=== PATIENT | female | born 1935 | race Caucasian/White ===

== ENCOUNTER 2017-05-23 12:37 | Outpatient (CLI) | payer MEDICARE, BC ==
--- NOTE | 2017-05-23 15:13 | CT ---
CT BRAIN WITHOUT CONTRAST: History: Left hand weakness, patient is on a blood thinner and has a history of lung cancer. FINDINGS: There is small focus of increased attenuation in the posterior aspect of the right thalamus, suspicio us for a small acute hemorrhage. There is an adenoid cyst in the left posterior frontal region in the inter table of the calvarium. Ventricular size is normal and the basilar cisterns patent. No other e vidence of acute infarct or midline shift is seen. The bony calvarium is intact. The visualized sinus es and mastoid air cells are well aerated. IMPRESSION: 1. Small focus of acute hemorrhage in the right thalamus. Further evaluation with MRI would be helpfu l. 2. Report was called over the telephone to Dr. Tana Mosher's nurse, Kris Tinoco LVN at 1:19 p.m. POS: OFF
== END 2017-05-23 12:38 | disposition home or self-care (01) ==
LOC: SCSCT 12:37
PROVIDERS: ATTEND Internal Medicine Geriatric Medicine
DX: R29.898 Other symptoms and signs involving the musculoskeletal system (principal)
CPT/HCPCS: 70450

== ENCOUNTER 2017-05-24 16:18 | Outpatient (CLI) | payer MEDICARE, BC | END 2017-05-24 16:19 | disposition home or self-care (01) | LOC: BICMRI 16:18 | PROVIDERS: ATTEND Internal Medicine Geriatric Medicine | DX: I61.0 Nontraumatic intracerebral hemorrhage in hemisphere, subcortical (principal) | CPT/HCPCS: 70551 ==

== ENCOUNTER 2017-06-19 12:39 | Outpatient (CLI) | payer MEDICARE, BC ==
--- NOTE | 2017-06-19 13:13 | RAD ---
TWO VIEWS CHEST: Date: 06-19-17 Provided Clinical History: Dyspnea. FINDINGS: No comparisons. Cardiac silhouette appears enlarged. There is poor definition to the left heart dylon n with somewhat triangular density present on the lateral view suggesting lingular atelectasis or inf iltrate. There is patchy opacity present within the right midlung zone. No pleural fluid or pneumotho rax apparent. Emphysematous changes are seen. Vascular calcification is noted. IMPRESSION: 1. Lingular infiltrate or atelectasis. 2. Right midlung zone airspace disease. Correlation with chest CT should be considered. Follow up is recommended. POS: OFF
== END 2017-06-19 12:40 | disposition home or self-care (01) ==
LOC: RAD 12:39
PROVIDERS: ATTEND Internal Medicine Critical Care Medicine
DX: R06.00 Dyspnea, unspecified (principal); J98.4 Other disorders of lung
CPT/HCPCS: 71046

== ENCOUNTER 2017-10-30 12:17 | Day surgery (SDC) | payer MEDICARE, BC ==
[2017-10-29 13:44] VITALS: BMI 20.1
[2017-10-30] MEDS ORDERED: PROPOFOL 200 MG/20 ML VIAL ONE (12:43)
[2017-10-30] MEDS ORDERED: Lidocaine 1% PF 5 ML VIAL ONE (12:43)
--- NOTE | 2017-10-30 13:57 | OP ---
DATE OF PROCEDURE: 10/30/2017 GI ENDOSCOPY NOTE SURGEON: Drake Lindo M.D. STAVE LOG RIPSAW OPERATOR SURGEON: None. PROCEDURE: Colonoscopy, screening. INDICATION: Average risk colorectal cancer screening exam. The patient's last colonoscopy was in 02 11. MEDICATIONS: See anesthesia record. FINDINGS: After discussion of the risks, benefits and alternatives of the procedure, informed consen t was obtained and witnessed. Pre-endoscopic cardiopulmonary examination was satisfactory. Timeout was performed before sedation was achieved. Sedation was achieved with anesthesia assistance in the endoscopy unit. Digital rectal exam was performed which was unremarkable. The Pentax adult colonosc ope was inserted into the anus and passed forward to the cecum in the usual fashion. The cecal base was identified by the appendiceal orifice as well as the ileocecal valve. The terminal ileum was int ubated and the ileal mucosa appeared normal. The colonoscope was then slowly withdrawn in a gradual and circumferential manner with careful examination of the entire colonic mucosa. The quality of the prep was adequate. The colonic mucosa appeared normal throughout. There was no evidence of any renuka yps or mass lesions or areas of inflammation. In the sigmoid colon, there are a few diverticula. Re troflexion in the rectum demonstrated internal hemorrhoids. The colonoscope was then completely with drawn and the patient allowed to recover. The patient tolerated the procedure well. There were no i mmediate post-procedure complications. IMPRESSION: 1. Sigmoid diverticulosis. 2. Internal hemorrhoids. 3. Otherwise, normal colonoscopy to the terminal ileum. RECOMMENDATIONS: 1. No repeat colonoscopy is recommended, due to the patient's age and the absence of polyps on this examination. 2. The patient can resume her Eliquis.
== END 2017-10-30 14:00 | disposition home or self-care (01) ==
LOC: SDC 12:17
PROVIDERS: ATTEND Internal Medicine
PROC: 0DJD8ZZ Inspection of Lower Intestinal Tract, Via Natural or Artificial Opening Endoscopic (ICD-10-PCS; principal; 2017-10-30)
DX: Z12.11 Encounter for screening for malignant neoplasm of colon (principal); K57.30 Diverticulosis of large intestine without perforation or abscess without bleeding; K64.8 Other hemorrhoids; I48.91 Unspecified atrial fibrillation; Z87.891 Personal history of nicotine dependence; Z79.01 Long term (current) use of anticoagulants; Z79.899 Other long term (current) drug therapy
CPT/HCPCS: J2001; J2704

== ENCOUNTER 2017-12-18 12:46 | Outpatient (CLI) | payer MEDICARE, BC ==
--- NOTE | 2017-12-18 13:25 | RAD ---
CHEST TWO VIEWS: HISTORY: Dyspnea. COMPARISON: 06/19/2017 FINDINGS: Two views of the chest show an enlarged but stable cardiomediastinal silhouette. Increased interstit ial markings are present. There is no evidence of consolidation, mass, or pleural effusion. Degener ative changes are seen in the spine. IMPRESSION: 1. No evidence of acute cardiopulmonary disease. 2. Stable cardiomegaly. POS: [facility]
== END 2017-12-18 12:47 | disposition home or self-care (01) ==
LOC: RAD 12:46
PROVIDERS: ATTEND Internal Medicine Critical Care Medicine
DX: R06.00 Dyspnea, unspecified (principal); I51.7 Cardiomegaly
CPT/HCPCS: 71046

== ENCOUNTER 2018-02-08 13:38 | Outpatient (CLI) | payer MEDICARE, BC ==
--- NOTE | 2018-02-08 16:34 | BD ---
DEXA BONE DENSITY STUDY: Date: 02/08/18 HISTORY: 82-year-old postmenopausal female for screening for osteoporosis. COMPARISON: None. FINDINGS: Lumbar Spine: BMD (g/cm2) L1 0.751 T-Score: -2.2 L2 0.773 T-Score: -2.3 L3 0.708 T-Score: -3.4 L4 0.753 T-Score: -2.8 L1-L4 0.744 T-Score: -2.8 Femoral Neck: 0.813 T-Score: -0.3 Total Femur: 0.913 T-Score: -0.2 IMPRESSION: Osteoporosis. This patient has a 10 year WHO fracture risk of a major osteoporotic fracture of 7.9% a nd of a hip fracture of 1.4%. POS: [facility]
== END 2018-02-08 13:39 | disposition home or self-care (01) ==
LOC: BICMAMMO 13:38
PROVIDERS: ATTEND Internal Medicine Geriatric Medicine
DX: Z12.31 Encounter for screening mammogram for malignant neoplasm of breast (principal); Z13.820 Encounter for screening for osteoporosis; M81.0 Age-related osteoporosis without current pathological fracture
CPT/HCPCS: 77063; 77067; 77080

== ENCOUNTER 2018-02-21 04:50 | Inpatient (IN) | payer MEDICARE, BC ==
[2018-02-21 05:36] LABS: Band 7 % (5-11); Eosinophils 2 % (0-10); Hemoglobin 13.1 g/dL (12.0-16.0); Lymphocytes 27 % (21-51); MDiff Complete? YES; Mean Corpuscular HGB CONC 34.1 g/dL (32.0-36.0); Mean Corpuscular Hemoglobin 31.1 pg (27.0-31.0); Mean Corpuscular Volume 91.1 fL (78.0-98.0); Mean Platelet Volume 7.9 fL (7.4-10.4); Monocytes 7 % (0-10); Neutrophil 54 % (42-75); Platelet Count 256 thou/uL (130-400); RBC Distribution Width 12.9 % (11.5-14.5); Reactive Lymphocytes 3 % (0-10); Red Blood Cell (RBC) Count 4.21 mill/uL (4.20-5.40); White Blood Cell (WBC) Count 5.6 thou/uL (4.8-10.8)
[2018-02-21 05:41] LABS: ALT (SGPT) 10 U/L (8-55); AST (SGOT) 23 U/L (5-34); Albumin 4.5 g/dL (3.4-4.8); Alkaline Phosphatase 72 U/L (40-150); Anion Gap 14 mmol/L (10-20); BUN (Urea Nitrogen) 11 mg/dL (9.8-20.1); Bilirubin, Total 0.4 mg/dL (0.2-1.2); CK (CPK) 99 U/L (29-168); Calc. Creatinine Clearance 0 mL/min (70-130); Calcium 9.4 mg/dL (7.8-10.44); Carbon Dioxide 26 mmol/L (23-31); Chloride 99 mmol/L (98-107); Estimated GFR-MDRD 80; Globulin 3.2 g/dL (2.4-3.5); Glucose 96 mg/dL (83-110); Lipase 24 U/L (8-78); Protein, Total 7.7 g/dL (6.0-8.3); Sodium 135 mmol/L (136-145)
[2018-02-21 07:05] LABS: CKMB 2.6 ng/mL (0-6.6); Troponin I Less than 0.010 ng/mL (< 0.028)
[2018-02-21] MEDS ORDERED: Lidocaine Viscous Sol 2% 15 ml UD Cup ONE (07:05)
[2018-02-21] MEDS ORDERED: Mag-Al Plus 1200 MG/1200 MG/120 MG/30 ML UDCUP ONE (07:05)
[2018-02-21] MEDS ORDERED: Famotidine/PF 20 mg/2ml Vial ONE ×2 (07:34)
--- NOTE | 2018-02-21 07:35 | CT ---
CT ABDOMEN AND PELVIS WITH CONTRAST: INDICATION: Pain. COMPARISON: No prior imaging comparison. FINDINGS: There is a generalized heterogeneity of the hepatic parenchyma. Moderate pericardial fluid is partia lly visualized. There is enlargement of the imaged cardiac chambers. The spleen is prominent in vol ume. There is a small hiatal hernia. Exophytic right renal cyst is seen. There is an additional hy podensity of the superior pole right kidney, too small to further characterize. No overt hydronephro sis or adrenal mass. Scattered vascular disease is typical for patient's age. Minimal nonspecific p rominence of the pancreatic duct without a discrete pancreatic mass identified. There is constipatio n. The bowel is incompletely evaluated without enteric contrast. No free air is visualized. No por cordell vein gas. Atrophy of the paraspinous musculature. Incidental note of probable scarring at the v isualized lung bases. IMPRESSION: 1. Partially imaged moderate-sized pericardial effusion. 2. Constipation. 3. Slight prominence of pancreatic duct, nonspecific. 4. Right renal cyst formation. POS: [facility]
--- NOTE | 2018-02-21 08:06 | RAD ---
SINGLE VIEW OF THE CHEST: COMPARISON: 12/18/2017. HISTORY: Epigastric pain beginning at midnight. FINDINGS: A single view of the chest shows an enlarged but stable cardiomediastinal silhouette. Increased inte rstitial lung markings are present. There is no evidence of consolidation, mass, or pleural effusion . IMPRESSION: Stable cardiomegaly. POS: [facility]
[2018-02-21] MEDS ORDERED: Ondansetron PF 4 MG/2 ML Vial ONE (08:58)
[2018-02-21 10:06] VITALS: BMI 19.5
[2018-02-21] MEDS ORDERED: Ondansetron PF 4 MG/2 ML Vial IVP PRN (10:16)
[2018-02-21] MEDS ORDERED: Acetaminophen 650 MG Suppository PR PRN (10:16)
[2018-02-21] MEDS ORDERED: Morphine 4 MG/ML VIAL SLOW IVP PRN (10:33)
[2018-02-21] MEDS ORDERED: Polyethylene Glycol 3350 17 GM Packet PO SCH (10:45)
[2018-02-21] MEDS ORDERED: Fleet Enema 133 ML BOT PR SCH (10:45)
[2018-02-21] MEDS ORDERED: Apixaban 5 MG TAB PO SCH (11:30)
--- NOTE | 2018-02-21 11:44 | HP ---
PRIMARY CARE PROVIDER: Mari John M.D. CHIEF COMPLAINT: Referred to [facility] by [facility] for abdo leon pain. HISTORY OF PRESENT ILLNESS: The patient presents with a cramping like abdominal pain, continuous ove r approximately the past 24 hours but has severe episodes that occur intermittently. She has had no nausea or vomiting, no diarrhea. She states she had a bowel movement yesterday. In discussing thing s, she stated that she had a big change in her bowel movements after she moved here a year ago, but s he denies any constipation. She has had no blood per rectum. No fever, chills or sweats. Noted on a CT in the workup was extensive stool throughout the colon with a diagnosis of constipation by the r adiologist. She was also noted to have a moderate pleural effusion, pericardial effusion. PAST MEDICAL HISTORY: Atrial fibrillation, anticoagulation lung cancer post-surgery 6 years ago, a s mall intracranial hemorrhage a few months ago for which she says she was not hospitalized. Her Couma din was changed to Eliquis at that time. Hypothyroidism. CURRENT MEDICATIONS: Eliquis 5 mg p.o. b.i.d., levothyroxine 25 mcg a day, metoprolol 25 mg a day, v itamin C/E/Zinc/Copper 1 p.o. b.i.d. ALLERGIES: No known drug allergies. PAST SURGICAL HISTORY: She has had a hysterectomy and lung surgery for cancer. FAMILY HISTORY: Mother, father, siblings, no diseases noted. SOCIAL HISTORY: . Full code status. Daughter Neida is next of kin, surrogate decision rosa lennon. No alcohol, no tobacco in 50 years. She drinks wine with dinner. REVIEW OF SYSTEMS: GENERAL: No headaches, dizziness, or fainting. EYES: She has macular degeneration, has not had laser surgery, is taking vitamins at this time. Ears, Nose, and Throat: No ear pain or drainage. No nasal bleeding. No trouble swallowing. CARDIAC: No chest pain, orthopnea or paroxysmal nocturnal dyspnea. RESPIRATIONS: No cough, wheezing, or asthma. GASTROINTESTINAL: See PI. GENITOURINARY: No hematuria or dysuria. MUSCULOSKELETAL: No pain or swelling in her arms and legs. NEUROLOGIC: She had a small intracranial hemorrhage, poorly described by her with no residual. PSYCHIATRIC: No anxiety or depression. SKIN: No bruising, bleeding or rash. HEME/LYMPH: No tender or swollen lymph nodes in axilla, inguinal or cervical area. PHYSICAL EXAMINATION: GENERAL: The patient is alert, pleasant, cooperative. VITALS: Pulse 82 and irregular, respirations 20, blood pressure 140/60, temperature 98.6. HEENT: Reveal pupils equal, round. Extraocular movements are intact. Sclerae white. Tympanic memb ranes clear. Nose is clear. Oral mucous membranes are wet. Dental hygiene is good. NECK: No jugular venous distention, adenopathy, or thyromegaly. CHEST: Clear to auscultation and percussion. HEART: Irregular rate and rhythm controlled. First and second heart sounds were variable. No murmu rs identified. ABDOMEN: Soft, variably tender. Bowel sounds normal. No bruit. No rashes. EXTREMITIES: No cyanosis, clubbing, or edema. PULSES: Carotid, radial, femoral, and dorsalis pedis pulses intact and symmetric. SKIN: Warm and dry without bruises or rash. HEME/LYMPH: No tender or swollen lymph nodes in axilla, inguinal or cervical area. NEUROLOGICAL: Cranial nerves II-XII are intact. Deep tendon reflexes are symmetric. Moves all extr emities. LABORATORY AND X-RAY FINDINGS: CT of the abdomen and pelvis. I have reviewed it. The interpretatio n by the radiologist is , moderate sized pericardial effusion, constipation, slight prominence o f pancreatic duct, renal cyst. EKG, irregularly irregular rhythm consistent with atrial fibrillation , nonspecific T-wave changes. Comp metabolic profile normal except for a sodium of 135. The lipase is 24. Cardiac enzymes are normal. CBC is normal. ADMITTING DIAGNOSES: Abdominal pain, pericardial effusion, atrial fibrillation with controlled ventricular response, chron ic anticoagulation, history of lung cancer, hypothyroidism. PLAN: Based on her abdominal exam and her workup, we will give MiraLax and Fleet's enema and watch. An echocardiogram has been ordered. Dr. Mitchell has been consulted. She will be continued on her wa dications for atrial fibrillation including her anticoagulation at this time. This lady will require at least 2 overnights for evaluation and treatment of this abdominal pain and of this pericardial ef fusion, she will likely need a pericardiocentesis.
[2018-02-21 12:10] LABS: T4 6.2 ug/dL (4.87-11.72); Thyroid Stimulating Hormone 2.9312 uIU/mL (0.35-4.94)
[2018-02-21] MEDS: Ketorolac Tromethamine 30 MG/ML VIAL IVP PRN ×2 (12:47→19:18)
--- NOTE | 2018-02-21 13:01 | CON-2 ---
CARDIOLOGY CONSULTATION NOTE DATE OF CONSULTATION: 02/21/2018 CONSULTING PHYSICIAN: Quirino Mitchell MD REASON FOR CONSULTATION: Pericardial effusion. HISTORY OF PRESENT ILLNESS: Ms. Salas is a very pleasant 82-year-old female with past medical history significant for atrial fibrillation with 3 prior unsuccessful cardioversions, history of lung cancer, status post partial lobectomy, hypothyroidism that presents with sudden onset epigastric pain that woke her from sleep early this morning. Patient states that the pain is very severe and worse in the midepigastric region. She said she has never had pain like this previously. Patient denies any chest pain, palpitations, shortness of breath, nausea, or vomiting associated with this pain. The patient states that she has no cardiac history aside from the atrial fibrillation for which she is being anticoagulated with Eliquis 5 mg b.i.d. She is otherwise healthy and does not endorse any other significant past medical history. The patient states prior to the severe epigastric pain that awoke him from sleep, she had been feeling well. She denies any recent viral illnesses or episodes of chest pain. The patient was brought to [facility] Emergency Department where a CT of the abdomen and pelvis was performed. CT abdomen and pelvis showed a partially imaged moderate sized pericardial effusion for which the Cardiology team was consulted for further evaluation. At the time of consultation, the patient was having epigastric and diffuse abdominal pain. She denied any chest pain, shortness of breath, diaphoresis, nausea, or vomiting. PAST MEDICAL HISTORY: 1. Atrial fibrillation on chronic anticoagulation. 2. History of lung cancer, status post partial lobectomy. 3. Hypothyroidism. PAST SURGICAL HISTORY: 1. Appendectomy. 2. Partial lobectomy for lung cancer 6-7 years ago. 3. Reported history of 3-4 prior unsuccessful cardioversions. OUTPATIENT MEDICATIONS: 1. Levothyroxine 25 mcg daily. 2. Metoprolol succinate 25 mg daily. 3. Eliquis 5 mg b.i.d. 4. PreserVision 2 drops per day in each eye. ALLERGIES: No known drug allergies. FAMILY HISTORY: There is no family history significant for coronary artery disease. SOCIAL HISTORY: The patient does endorse a past history of smoking which she quit more than 40 years ago. The patient endorses drinking a glass of wine per night. The patient denies any illicit drug use. REVIEW OF SYSTEMS: A 12-point review of systems was performed and all were negative unless those stated in the history of present illness. PHYSICAL EXAMINATION: VITAL SIGNS: Temperature 98.6, pulse 80, respiratory rate 22, O2 saturation 97 % on room air, blood pressure 138/61. GENERAL: Awake, alert and oriented x3, in no distress. HEENT: Normocephalic, atraumatic. NECK: Supple. LUNGS: Clear to auscultation. CARDIOVASCULAR: Irregularly irregular rhythm. ABDOMEN: Soft, but tender to palpation throughout with some rebound tenderness , particularly in the left lower quadrant. EXTREMITIES: No edema. SKIN: Warm and dry. LABORATORY DATA: Reviewed. CBC reveals WBC of 5.6, hemoglobin 13.1, hematocrit 38.4, platelet count of 256. CMP reveals a sodium of 135, potassium 4.0, chloride 99, bicarbonate 26, BUN 11, creatinine 0.70, GFR 80, calcium 9.4, total bilirubin 0.4, AST 23, ALT 10, alkaline phosphatase 72, albumin 4.5, total protein 7.7. CK-MB was noted to be 2.6. Troponin less than 0.010. Lipase was 24. TSH was 2.9312 with a T4 of 6.2. EKG was reviewed and showed atrial fibrillation. Chest x-ray showed stable cardiomegaly. Abdomen and pelvis CT with contrast was performed and showed partially imaged moderate sized pericardial effusion. There is also notable constipation and some slight prominence of the pancreatic duct that appeared to be nonspecific. There is also a right renal cyst formation. ASSESSMENT AND PLAN: 1. Pericardial effusion. There is mention of a partially imaged moderate- sized pericardial effusion on CT abdomen and pelvis with contrast. We will further evaluate with echocardiogram. 2. Atrial fibrillation, appears rate controlled. Continue current anticoagulation and BB. 3. Hypothyroidism. Continue levothyroxine. TSH within normal limits. Thank you for the consultation. We will continue to follow. [facility]
--- NOTE | 2018-02-21 16:09 | PDOC.EVN ---
Event Note - Event Note Event Note: adequate dyana reliief with toradol, abd benign. advance diet, cont laxatives
[2018-02-21] MEDS: D5 1/2 NS w/20 mEq KCL 1,000 ML IV SCH (17:20)
[2018-02-21] MEDS: Apixaban 5 MG TAB PO SCH (20:20)
[2018-02-21] MEDS: Vit A,C & E/Lutein/Minerals Tablet PO SCH (20:20)
--- NOTE | 2018-02-21 20:38 | CON ---
DATE OF CONSULTATION: 02/21/2018 REASON FOR CONSULTATION: Pericardial effusion. Please see Dr. Chiquita Angel's note from this same date for consultation her note into my n ote and agree with her assessment and plan. HISTORY OF PRESENT ILLNESS: Briefly, Ms. Salas came in for epigastric pain. She had an abdominal C T that showed a large amount of stool in her colon diagnosed with constipation. Part of the CT showe d a partially imaged pericardial effusion, so Cardiology is being consulted for this. Ms. Salas den ies any chest pain, tightness, pressure. Denies any pericardial symptoms. Denies any pleuritic type symptoms. She is chronically on anticoagulation with Eliquis for history of atrial fibrillation and has had partial lobectomy secondary to history of lung cancer which is in remission. For past medical, past surgical, outpatient medications, allergies, family history, social history, r eview of systems, please see Dr. Angel's note for details. PHYSICAL EXAMINATION: VITAL SIGNS: Temperature 98.6, pulse 94, respiration rate 20, satting 93% on room air, blood pressur e 144/79. GENERAL: Awake, alert, oriented x3, in no distress. HEENT: Normocephalic, atraumatic. NECK: Supple. LUNGS: Clear. CARDIOVASCULAR: Regular rate, 60s. ABDOMEN: Soft with positive bowel sounds. No rebound or guarding. This is a change from when Dr. Ivone pulido saw her earlier. She has received a dose of Toradol since and is much more comfortable now. EXTREMITIES: Trace edema. SKIN: Warm and dry. LABORATORY WORK: Reviewed. Please see Dr. Angel's note for details. ASSESSMENT: 1. Pericardial effusion. 2. Atrial fibrillation, chronic, rate controlled, on full anticoagulation. 3. Hypothyroidism, adequate levels. PLAN: 1. Echocardiogram to be done to evaluate. 2. No clinical evidence of tamponade physiology on physical examination. 3. Continue rate control and full anticoagulation with Eliquis for stroke prophylaxis. 4. Abdominal pain to be worked up by primary team. Apparently constipation will be the issue. She is doing much better now.
[2018-02-22] MEDS: D5 1/2 NS w/20 mEq KCL 1,000 ML IV SCH ×3 (01:37→20:35)
[2018-02-22 05:20] LABS: #Eosinphils 0.1 thou/uL (0.0-0.7); #Lymphocytes 1.2 thou/uL (1.20-3.40); #Monocytes 0.4 thou/uL (0.11-0.59); #Neutrophils 5.1 thou/uL (1.40-6.50); %Basophils 0.5 % (0.0-1.0); %Eosinophils 1.2 % (0.0-10.0); %Lymphocytes 17.3 % (21.0-51.0); %Neutrophils 74.9 % (42.0-75.0); Hemoglobin 11.6 g/dL (12.0-16.0); Mean Corpuscular HGB CONC 31.8 g/dL (32.0-36.0); Mean Corpuscular Hemoglobin 31.3 pg (27.0-31.0); Mean Corpuscular Volume 98.3 fL (78.0-98.0); Mean Platelet Volume 7.7 fL (7.4-10.4); Platelet Count 269 thou/uL (130-400); RBC Distribution Width 13.5 % (11.5-14.5); White Blood Cell (WBC) Count 6.8 thou/uL (4.8-10.8)
[2018-02-22 05:37] LABS: Anion Gap 10 mmol/L (10-20); BUN (Urea Nitrogen) 15 mg/dL (9.8-20.1); Calc. Creatinine Clearance 57 mL/min (70-130); Calcium 8.3 mg/dL (7.8-10.44); Carbon Dioxide 27 mmol/L (23-31); Chloride 100 mmol/L (98-107); Estimated GFR-MDRD 84; Glucose 119 mg/dL (83-110); Potassium 3.3 mmol/L (3.5-5.1); Sodium 134 mmol/L (136-145)
[2018-02-22] MEDS: Levothyroxine Sodium 25 MCG TAB PO SCH (05:55)
[2018-02-22] MEDS: Apixaban 5 MG TAB PO SCH ×2 (08:44→20:27)
[2018-02-22] MEDS: Vit A,C & E/Lutein/Minerals Tablet PO SCH ×2 (08:44→20:27)
[2018-02-22] MEDS ORDERED: Polyethylene Glycol 3350 17 GM Packet PO SCH (09:00)
--- NOTE | 2018-02-22 09:29 | PDOC.PN ---
- Subjective Encounter Start Date: 02/22/18 Encounter Start Time: 09:27 Subjective: small amount stool passed, pain improved - Objective Resuscitation Status: Resuscitation Status FULL:Full Resuscitation MAR Reviewed: Yes Vital Signs & Weight: Vital Signs (12 hours) Temp Pulse Resp BP Pulse Ox 02/22/18 08:51 94 L 02/22/18 08:49 98.1 F 72 18 115/68 94 L 02/22/18 04:00 97.7 F 74 16 100/56 L 95 02/22/18 00:00 97.7 F 78 16 106/65 95 Weight Weight 121 lb 8 oz I&O: 02/21/18 02/22/18 02/23/18 06:59 06:59 06:59 Intake Total 2490 Output Total 215 Balance 2275 Result Diagrams: 02/22/18 04:27 02/22/18 04:27 Phys Exam - Physical Examination Neck: no JVD Respiratory: clear to auscultation bilateral Cardiovascular: RRR Gastrointestinal: soft, positive bowel sounds Musculoskeletal: no edema Dx/Plan (1) Abdominal pain Code(s): R10.9 - UNSPECIFIED ABDOMINAL PAIN Status: Acute Qualifiers: Abdominal location: generalized Qualified Code(s): R10.84 - Generalized abdominal pain (2) Pericardial effusion Code(s): I31.3 - PERICARDIAL EFFUSION (NONINFLAMMATORY) Status: Acute (3) Atrial fibrillation with controlled ventricular response Code(s): I48.91 - UNSPECIFIED ATRIAL FIBRILLATION Status: Chronic (4) Anticoagulant long-term use Code(s): Z79.01 - HALF-WAY (CURRENT) USE OF ANTICOAGULANTS Status: Chronic - Plan rpt miralax, SS enema -: cont eliquis, metoprolol -: appreciate Dr Carr assistance * .
--- NOTE | 2018-02-22 14:41 | PDOC.EVN ---
Event Note - Event Note Event Note: try bowel prep
[2018-02-22] MEDS ORDERED: GoLYTELY 4,000 ml Bottle PO SCH (14:45)
--- NOTE | 2018-02-22 16:26 | PDOC.CTH ---
Cardiology Progress Note - Subjective She is better. no more abdominal pain but has not had a BM yet. - Objective Vital Signs Temp Pulse Resp BP Pulse Ox 02/22/18 11:19 98.2 F 82 16 116/69 94 L 02/22/18 08:51 94 L 02/22/18 08:49 98.1 F 72 18 115/68 94 L Weight 121 lb 8 oz 02/21/18 02/22/18 02/23/18 06:59 06:59 06:59 Intake Total 2490 Output Total 215 Balance 2275 - Physical Examination General/Neuro: alert & oriented x3, NAD Neck: no JVD present Lungs: CTA, unlabored respirations Heart: RRR Abdomen: NT/ND Extremities: other: (no edema) - Labs Result Diagrams: 02/22/18 04:27 02/22/18 04:27 Troponin/CKMB CK-MB (CK-2) 2.6 ng/mL (0-6.6) 02/21/18 05:05 Troponin I Less than 0.010 ng/mL (< 0.028) 02/21/18 05:05 - Assessment/Plan 1. Pericardial effusion. 2. Constipation. PLAN: - Small effusion, no tamponade. - Plan on watching this effusion with serial echos. - Follow up in office in 1 month with repeat echo. - Will sign off. Please call with any questions.
[2018-02-23] MEDS: D5 1/2 NS w/20 mEq KCL 1,000 ML IV SCH ×3 (01:58→16:36)
[2018-02-23] MEDS: Levothyroxine Sodium 25 MCG TAB PO SCH (05:55)
[2018-02-23 06:25] LABS: Anion Gap 11 mmol/L (10-20); BUN (Urea Nitrogen) 11 mg/dL (9.8-20.1); Calc. Creatinine Clearance 64 mL/min (70-130); Calcium 8.6 mg/dL (7.8-10.44); Carbon Dioxide 25 mmol/L (23-31); Chloride 105 mmol/L (98-107); Estimated GFR-MDRD Greater than 90; Glucose 88 mg/dL (83-110); Potassium 4.1 mmol/L (3.5-5.1); Sodium 137 mmol/L (136-145)
[2018-02-23] MEDS: Apixaban 5 MG TAB PO SCH (07:43)
[2018-02-23] MEDS: Vit A,C & E/Lutein/Minerals Tablet PO SCH (07:43)
--- NOTE | 2018-02-23 16:26 | RAD ---
ABDOMEN ONE VIEW: 02/23/18 HISTORY: 82-year-old female with history of constipation. COMPARISON: Radar Air Traffic Controller film from a CT dated 02/21/18. There is some minimal gas and only very minimal fecal material in the colon. No evidence of large or small bowel obstruction. No significant abnormal solid fecal material throughout the colon or rectum . Pleural and parenchymal changes within the lungs, evidence for chronic lung change. IMPRESSION: Unremarkable KUB. No significant solid fecal material within the colon to suggest constipation. POS: [facility]
[2018-02-23 19:49] VITALS: BP 140/90; TEMP 98.3
== END 2018-02-23 19:49 | disposition home or self-care (01) | DRG 316 ==
LOC: SCSER 04:50 → 2SW 08:00 → OBSVTOIN 10:16 → T4-B 12:47
PROVIDERS: ADMIT Family Medicine; ATTEND Family Medicine
DX: I31.3 Pericardial effusion (noninflammatory) (principal); I48.2 Chronic atrial fibrillation; Z85.118 Personal history of other malignant neoplasm of bronchus and lung; E03.9 Hypothyroidism, unspecified; Z79.01 Long term (current) use of anticoagulants; Z79.899 Other long term (current) drug therapy; K59.00 Constipation, unspecified
CPT/HCPCS: 36415; 71045; 74018; 74177; 80048; 80053; 82550; 82553; 83690; 84436; 84443; 84484; 85025; 93005; 93306; 96374; 96375; J1885; J2270; J2405; S0028

== ENCOUNTER 2018-06-17 13:29 | Outpatient (CLI) | payer MEDICARE, BC ==
--- NOTE | 2018-06-17 14:39 | RAD ---
CHEST TWO VIEWS: 06/17/2018 PROVIDED CLINICAL HISTORY: Dyspnea. COMPARISON: 12/18/2017 FINDINGS: The cardiac and mediastinal silhouette is unchanged in appearance. Poor definition to the left heart margin is redemonstrated. Chronic obstructive changes are again seen. Right mid lung zone parenchy mal opacity is stable. No pleural fluid or pneumothorax apparent. IMPRESSION: Stable radiographic appearance of the chest. POS: [facility]
== END 2018-06-17 13:30 | disposition home or self-care (01) ==
LOC: RAD 13:29
PROVIDERS: ATTEND Internal Medicine Critical Care Medicine
DX: R06.00 Dyspnea, unspecified (principal)
CPT/HCPCS: 71046

== ENCOUNTER 2019-03-18 12:30 | Outpatient (CLI) | payer MEDICARE, BC ==
--- NOTE | 2019-03-18 12:47 | RAD ---
EXAM: Chest 2 views: HISTORY: Dyspnea COMPARISON: 06/17/2018 FINDINGS: There is an enlarged but stable cardiomediastinal silhouette. Increased interstitial markings are pr esent. There is no evidence of consolidation, mass, or pleural effusion. The bones are unremarkable. IMPRESSION: Stable cardiomegaly
== END 2019-03-18 12:31 | disposition home or self-care (01) ==
LOC: RAD 12:30
PROVIDERS: ATTEND Internal Medicine Critical Care Medicine
DX: R06.00 Dyspnea, unspecified (principal); I51.7 Cardiomegaly
CPT/HCPCS: 71046

== ENCOUNTER 2019-05-21 13:32 | Outpatient (CLI) | payer MEDICARE, BC ==
--- NOTE | 2019-05-21 16:57 | MMO ---
Bilateral MAMMO Bilat Screen DDI+SOPHIE. CLINICAL HISTORY: Patient is 83 years old and is seen for screening. The patient has no family history of breast cancer. The patient has no personal history of cancer. VIEWS: The views performed were: bilateral craniocaudal with tomosynthesis and bilateral mediolateral oblique with tomosynthesis. FILMS COMPARED: The present examination has been compared to prior imaging studies performed at [facility], on 01/05/2015, 01/08/2015 and 11/28/2016, and at [facility] on 02/08/2018. This study has been interpreted with the assistance of computer-aided detection. MAMMOGRAM FINDINGS: There are scattered fibroglandular densities. There are no suspicious masses, suspicious calcifications, or new areas of architectural distortion. IMPRESSION: THERE IS NO MAMMOGRAPHIC EVIDENCE OF MALIGNANCY. A ROUTINE FOLLOW-UP MAMMOGRAM IN 1 YEAR IS RECOMMENDED. THE RESULTS OF THIS EXAM WERE SENT TO THE PATIENT. ACR BI-RADS Category 1 - Negative MAMMOGRAPHY NOTE: 1. A negative mammogram report should not delay a biopsy if a dominant of clinically suspicious mass is present. 2. Approximately 10% to 15% of breast cancers are not detected by mammography. 3. Adenosis and dense breasts may obscure an underlying neoplasm. Reported by: CARLOS SHAH MD Electonically Signed: [id number]
== END 2019-05-21 13:33 | disposition home or self-care (01) ==
LOC: BICMAMMO 13:32
PROVIDERS: ATTEND Family Medicine
DX: Z12.31 Encounter for screening mammogram for malignant neoplasm of breast (principal)
CPT/HCPCS: 77063; 77067

== ENCOUNTER 2019-10-10 09:56 | Outpatient (CLI) | payer MEDICARE, BC ==
--- NOTE | 2019-10-10 10:26 | RAD ---
Exam:Right hip 2 views HISTORY: Pain. COMPARISON: None FINDINGS: Contour of the femoral head is maintained. Joint spaces preserved. Intact bony pelvis. IMPRESSION: No significant degenerative change. No fracture.
== END 2019-10-10 09:57 | disposition home or self-care (01) ==
LOC: BICRAD 09:56
PROVIDERS: ATTEND Family Medicine
DX: M25.551 Pain in right hip (principal); E03.9 Hypothyroidism, unspecified; E55.9 Vitamin D deficiency, unspecified; I10 Essential (primary) hypertension
CPT/HCPCS: 36415; 80053; 80061; 82306; 84443; 85025

== ENCOUNTER 2019-11-12 14:34 | Outpatient (CLI) | payer MEDICARE, BC ==
--- NOTE | 2019-11-12 14:53 | RAD ---
XR Lumbar Spine 2 Or 3 View: 11/12/2019 12:00 AM Low back pain with radiation into the right hip COMPARISON: None FINDINGS: There are 5 lumbar type vertebra. Fracture: None. Alignment: There is slight retrolisthesis of L2 on L3. There is dextroscoliosis of lumbar spine cente red at L2-3. Degenerative Change: There is moderate multilevel disc degenerative disease most pronounced at L5-S1 . There is moderate to severe facet osteoarthritic change at L3-4 through L5-S1. Bone Mineralization:There is diffuse osteopenia. Soft tissues: No acute abnormality. IMPRESSION: Moderate spondylosis of the lumbar spine with dextroscoliosis. There is mild retrolisthes is of L2 on L3 which is likely degenerative.
== END 2019-11-12 14:35 | disposition home or self-care (01) ==
LOC: BICRAD 14:34
PROVIDERS: ATTEND Family Medicine
DX: M25.551 Pain in right hip (principal); M47.816 Spondylosis without myelopathy or radiculopathy, lumbar region; M41.9 Scoliosis, unspecified; M43.16 Spondylolisthesis, lumbar region
CPT/HCPCS: 72100

== ENCOUNTER 2020-03-17 10:13 | Outpatient (CLI) | payer MEDICARE, BC ==
--- NOTE | 2020-03-17 11:01 | RAD ---
PA AND LATERAL CHEST: Date: 03/17/2020 HISTORY: Dyspnea. COMPARISON: 03/18/2019. FINDINGS: Cardiomegaly again noted. Mild vascular congestion appears similar to the prior exam. Prominent inter stitial markings are seen bilaterally, which were also present on the prior exam. This may represent mild diffuse interstitial edema and/or superimposed interstitial lung disease. There is a focal paren chymal density overlying the right mid lung which is stable from 03/18/2019. Osseous structures unrem arkable. Posterior gutters are blunted consistent with small bilateral effusions. IMPRESSION: 1. Cardiomegaly with mild vascular congestion. Interstitial prominence which may represent mild diff use interstitial edema. 2. Focal opacity in the right mid lung is stable from prior study. POS: [facility]
== END 2020-03-17 10:14 | disposition home or self-care (01) ==
LOC: BICRAD 10:13
PROVIDERS: ATTEND Internal Medicine Critical Care Medicine
DX: R06.00 Dyspnea, unspecified (principal); I51.7 Cardiomegaly; R09.89 Other specified symptoms and signs involving the circulatory and respiratory systems; R91.8 Other nonspecific abnormal finding of lung field
CPT/HCPCS: 71046

== ENCOUNTER 2020-08-05 08:12 | Outpatient (CLI) | payer MEDICARE, BC | END 2020-08-05 08:13 | disposition home or self-care (01) | LOC: BICULT 08:12 | PROVIDERS: ATTEND Family Medicine | DX: Z13.6 Encounter for screening for cardiovascular disorders (principal); R09.89 Other specified symptoms and signs involving the circulatory and respiratory systems | CPT/HCPCS: 76775 ==

== ENCOUNTER 2021-04-27 10:41 | Outpatient (CLI) | payer MEDICARE, BC | END 2021-04-27 10:42 | disposition home or self-care (01) | LOC: RAD 10:41 | PROVIDERS: ATTEND Internal Medicine Critical Care Medicine | DX: R06.00 Dyspnea, unspecified (principal); I51.7 Cardiomegaly | CPT/HCPCS: 71046 ==

== ENCOUNTER 2022-02-22 10:44 | Outpatient (CLI) | payer MEDICARE, BC | END 2022-02-22 10:45 | disposition home or self-care (01) | LOC: RAD 10:44 | PROVIDERS: ATTEND Internal Medicine Critical Care Medicine | DX: R06.00 Dyspnea, unspecified (principal); I51.7 Cardiomegaly | CPT/HCPCS: 71046 ==

== ENCOUNTER 2022-06-13 14:09 | Outpatient (CLI) | payer MEDICARE, BC ==
[2022-06-13 14:39] LABS: #Eosinphils 0.1 10x3/uL (0.0-0.5); #Monocytes 0.3 10x3/uL (0.0-1.1); #Neutrophils 4.1 10x3/uL (1.5-8.4); %Basophils 0.8 % (0.0-2.0); %Eosinophils 1.7 % (0.0-6.0); %Lymphocytes 13.9 % (18.0-47.0); %Monocytes 6.3 % (0.0-10.0); %Neutrophils 77.1 % (40.0-75.0); Hemoglobin 14.2 g/dL (12.0-15.5); Mean Corpuscular HGB CONC 32.5 g/dL (32.0-36.0); Mean Corpuscular Hemoglobin 28.9 pg (27.0-33.0); Mean Platelet Volume 10.1 fl (7.4-10.4); Platelet Count 331 10x3/uL (150-450); RBC Distribution Width 14.7 % (11.5-14.5); Red Blood Cell (RBC) Count 4.91 10x6/uL (3.90-5.03); White Blood Cell (WBC) Count 5.3 10x3/uL (3.5-10.5)
[2022-06-13 14:58] LABS: Anion Gap 14 mmol/L (10-20); BUN (Urea Nitrogen) 12 mg/dL (9.8-20.1); Calc. Creatinine Clearance 0 mL/min (70-130); Calcium 9.6 mg/dL (7.8-10.44); Carbon Dioxide 31 mmol/L (23-31); Chloride 90 mmol/L (98-107); Estimated GFR 83; Glucose 80 mg/dL (83-110); Potassium 4.8 mmol/L (3.5-5.1); Sodium 130 mmol/L (136-145)
== END 2022-06-13 14:10 | disposition home or self-care (01) ==
LOC: LABBT 14:09
PROVIDERS: ATTEND Internal Medicine Cardiovascular Disease
DX: Z01.812 Encounter for preprocedural laboratory examination (principal); I42.9 Cardiomyopathy, unspecified
CPT/HCPCS: 80048; 85025

== ENCOUNTER 2022-06-16 06:29 | Day surgery (SDC) | payer MEDICARE, BC ==
[2022-06-14 13:21] VITALS: BMI 20.6
[2022-06-16] MEDS ORDERED: PROPOFOL 200 MG/20 ML VIAL ONE (08:49)
[2022-06-16] MEDS ORDERED: Apixaban 2.5 MG TAB PO SCH (10:15)
== END 2022-06-16 10:36 | disposition home or self-care (01) ==
LOC: SDC 06:29
PROVIDERS: ATTEND Internal Medicine Cardiovascular Disease
PROC: B246ZZ4 Ultrasonography of Right and Left Heart, Transesophageal (ICD-10-PCS; principal; 2022-06-16)
DX: I08.3 Combined rheumatic disorders of mitral, aortic and tricuspid valves (principal); I31.39 Other pericardial effusion (noninflammatory); I42.9 Cardiomyopathy, unspecified; I48.20 Chronic atrial fibrillation, unspecified; E03.9 Hypothyroidism, unspecified; Z85.118 Personal history of other malignant neoplasm of bronchus and lung; Z87.891 Personal history of nicotine dependence; Z79.01 Long term (current) use of anticoagulants; Z79.890 Hormone replacement therapy; Z79.899 Other long term (current) drug therapy
CPT/HCPCS: 93312; J2704

== ENCOUNTER 2022-06-27 16:42 | Inpatient (IN) | payer MEDICARE, BC ==
[~2022-06-27 16:42] MED LIST: Iopamidol-370 76% 500 ML 1 ML ONE
[2022-06-27 17:21] LABS: #Lymphocytes 0.4 thou/uL (1.20-3.40); #Monocytes 0.3 thou/uL (0.11-0.59); #Neutrophils 4.5 thou/uL (1.40-6.50); %Basophils 0.1 % (0.0-1.0); %Eosinophils 0.2 % (0.0-10.0); %Lymphocytes 7.3 % (21.0-51.0); %Monocytes 5.1 % (0.0-10.0); %Neutrophils 87.4 % (42.0-75.0); Hemoglobin 15.9 g/dL (12.0-16.0); Mean Corpuscular Hemoglobin 29.8 pg (27.0-31.0); Mean Corpuscular Volume 93.1 fl (78.0-98.0); Mean Platelet Volume 7.8 fL (7.4-10.4); Platelet Count 281 10x3/uL (130-400); RBC Distribution Width 13.9 % (11.5-14.5); Red Blood Cell (RBC) Count 5.35 mill/uL (4.20-5.40); White Blood Cell (WBC) Count 5.2 10x3/uL (4.8-10.8)
[2022-06-27 17:40] LABS: ALT (SGPT) 10 U/L (8-55); AST (SGOT) 29 U/L (5-34); Albumin 4.6 g/dL (3.4-4.8); Alkaline Phosphatase 128 U/L (40-110); Anion Gap 14 mmol/L (10-20); BUN (Urea Nitrogen) 10 mg/dL (9.8-20.1); Bilirubin, Total 1.7 mg/dL (0.2-1.2); Calc. Creatinine Clearance 0 mL/min (70-130); Calcium 9.7 mg/dL (7.8-10.44); Carbon Dioxide 31 mmol/L (23-31); Chloride 85 mmol/L (98-107); Estimated GFR 85; Globulin 3.4 g/dL (2.4-3.5); Glucose 104 mg/dL (83-110); Potassium 4.3 mmol/L (3.5-5.1); Sodium 126 mmol/L (136-145)
[2022-06-27 18:56] LABS: SARS-CoV-2 NAA Rapid Test Not Detected (NotDetected)
[2022-06-27] MEDS ORDERED: cefTRIAXone\\ROCEPHIN 2 GM VIAL ONE (19:20)
[2022-06-27] MEDS ORDERED: Acetaminophen 500 MG TAB ONE (19:21)
[2022-06-27] MEDS ORDERED: cefTRIAXone\\ROCEPHIN 1 GM VIAL ONE (19:27)
[2022-06-27] MEDS ORDERED: Furosemide 20 MG/2 ML VIAL ONE (19:58)
[2022-06-27] MEDS ORDERED: Azithromycin 500 MG VIAL ONE (19:58)
[2022-06-27] MEDS ORDERED: Ondansetron PF 4 MG/2 ML Vial IVP PRN (20:13)
[2022-06-27 20:47] LABS: Troponin I Less than 0.010 ng/mL (< 0.028)
[2022-06-27] MEDS: Ipratropium/Albuterol 3 ML NEB EZPAP SCH (23:47)
[2022-06-27 23:58] LABS: Troponin I 0.014 ng/mL (< 0.028)
[2022-06-28] MEDS: Melatonin 3 MG TAB PO PRN (00:04)
[2022-06-28] MEDS ORDERED: Cepastat Lozenges 1 LOZ PO PRN (01:58)
[2022-06-28 05:40] LABS: Anion Gap 11 mmol/L (10-20); BUN (Urea Nitrogen) 9 mg/dL (9.8-20.1); Calc. Creatinine Clearance 0 mL/min (70-130); Calcium 8.5 mg/dL (7.8-10.44); Carbon Dioxide 31 mmol/L (23-31); Chloride 88 mmol/L (98-107); Estimated GFR 89; Glucose 97 mg/dL (83-110); Hemoglobin 14.5 g/dL (12.0-16.0); Mean Corpuscular HGB CONC 30.3 g/dL (32.0-36.0); Mean Corpuscular Hemoglobin 29.7 pg (27.0-31.0); Mean Platelet Volume 8.1 fL (7.4-10.4); Platelet Count 250 10x3/uL (130-400); Potassium 3.6 mmol/L (3.5-5.1); RBC Distribution Width 14.1 % (11.5-14.5); Red Blood Cell (RBC) Count 4.89 mill/uL (4.20-5.40); Sodium 126 mmol/L (136-145); White Blood Cell (WBC) Count 4.9 10x3/uL (4.8-10.8)
[2022-06-28] MEDS: Levothyroxine Sodium 25 MCG TAB PO SCH (05:49)
[2022-06-28] MEDS: Ipratropium/Albuterol 3 ML NEB EZPAP SCH ×3 (06:38→18:49)
[2022-06-28 06:41] LABS: Lymphocytes 7 % (21-51); MDiff Complete? YES; Monocytes 2 % (0-10); Neutrophil 91 % (42-75); Ovalocytes SLIGHT = 2-5 cells (100X) (0-1/hpf); Platelet Morphology Comment Appears Adequate; Target Cells SLIGHT = 2-5 cells (100X) (0-1/hpf)
[2022-06-28] MEDS ORDERED: Empagliflozin 10 MG TAB PO SCH (13:00)
[2022-06-28] MEDS: Furosemide 20 MG/2 ML VIAL SLOW IVP SCH (13:33)
[2022-06-28] MEDS ORDERED: Chloraseptic Spray 180 ml Bottle PO PRN (13:59)
[2022-06-28 15:20] LABS: Bacteria/HPF 1+ HPF (None Seen); Bilirubin Negative (Negative); Blood, Urine Negative (Negative); CAUTI Indications for Culture Fever or rigors; Clarity Clear (Clear); Glucose, Urine (Dipstick) Normal (Negative); Ketone, Urine Negative (Negative); Leukocyte 75 Leu/uL (Negative); Nitrite Negative (Negative); Protein, Urine (Dipstick) 10 mg/dL (Neg-Trace); RBC/HPF 0-3 HPF (0-3); Specific Gravity, Urine 1.031 (1.002-1.036); Squamous Epithelial 0-3 HPF (0-3); Urobilinogen Normal mg/dL (Less than 2)
[2022-06-28 15:21] LABS: Urine Culture Reflex Yes Yes
[2022-06-28] MEDS ORDERED: Potassium Chloride 20 MEQ TAB PO SCH (17:00)
[2022-06-28] MEDS: Acetaminophen 325 MG TAB PO PRN (17:17)
[2022-06-28] MEDS ORDERED: Azithromycin 500 MG in Sodium Chloride 0.9% 250 ML 250 ML IVPB SCH (18:30)
[2022-06-28] MEDS ORDERED: Promethazine HCl 12.5 MG in Sodium Chloride 0.9% 50 ML IVPB PRN (18:31)
[2022-06-28] MEDS: Apixaban 2.5 MG TAB PO SCH (20:40)
[2022-06-28] MEDS: Azithromycin 500 MG in Sodium Chloride 0.9% 250 ML 250 ML IVPB SCH (21:24)
[2022-06-29] MEDS: Ipratropium/Albuterol 3 ML NEB EZPAP SCH ×5 (01:19→23:33)
[2022-06-29 04:58] LABS: #Lymphocytes 0.6 thou/uL (1.20-3.40); #Monocytes 0.3 thou/uL (0.11-0.59); #Neutrophils 3.6 thou/uL (1.40-6.50); %Basophils 0.8 % (0.0-1.0); %Eosinophils 0.9 % (0.0-10.0); %Monocytes 7.3 % (0.0-10.0); %Neutrophils 78.9 % (42.0-75.0); Mean Corpuscular HGB CONC 32.3 g/dL (32.0-36.0); Mean Corpuscular Hemoglobin 30.3 pg (27.0-31.0); Mean Corpuscular Volume 93.7 fl (78.0-98.0); Mean Platelet Volume 8.6 fL (7.4-10.4); Platelet Count 219 10x3/uL (130-400); RBC Distribution Width 14.1 % (11.5-14.5); Red Blood Cell (RBC) Count 4.63 mill/uL (4.20-5.40); White Blood Cell (WBC) Count 4.6 10x3/uL (4.8-10.8)
[2022-06-29 05:25] LABS: Anion Gap 13 mmol/L (10-20); BUN (Urea Nitrogen) 12 mg/dL (9.8-20.1); Calc. Creatinine Clearance 0 mL/min (70-130); Calcium 8.9 mg/dL (7.8-10.44); Carbon Dioxide 28 mmol/L (23-31); Chloride 91 mmol/L (98-107); Estimated GFR 89; Glucose 86 mg/dL (83-110); Potassium 4.3 mmol/L (3.5-5.1); Sodium 128 mmol/L (136-145)
[2022-06-29] MEDS: Furosemide 20 MG/2 ML VIAL SLOW IVP SCH ×2 (05:53→13:18)
[2022-06-29] MEDS: Levothyroxine Sodium 25 MCG TAB PO SCH (05:53)
[2022-06-29] MEDS ORDERED: Empagliflozin 10 MG TAB PO SCH (09:00)
[2022-06-29] MEDS: Apixaban 2.5 MG TAB PO SCH ×2 (09:07→20:49)
[2022-06-29] MEDS: Azithromycin 500 MG in Sodium Chloride 0.9% 250 ML 250 ML IVPB SCH (20:49)
[2022-06-29] MEDS: Melatonin 3 MG TAB PO PRN (20:49)
[2022-06-30] MEDS: Acetaminophen 325 MG TAB PO PRN (02:31)
[2022-06-30 05:22] LABS: #Eosinphils 0.1 thou/uL (0.0-0.7); #Lymphocytes 0.5 thou/uL (1.20-3.40); #Monocytes 0.4 thou/uL (0.11-0.59); #Neutrophils 4.6 thou/uL (1.40-6.50); %Basophils 0.4 % (0.0-1.0); %Eosinophils 1.3 % (0.0-10.0); %Lymphocytes 8.9 % (21.0-51.0); %Monocytes 6.3 % (0.0-10.0); %Neutrophils 83.1 % (42.0-75.0); Hemoglobin 13.8 g/dL (12.0-16.0); Mean Corpuscular HGB CONC 32.5 g/dL (32.0-36.0); Mean Corpuscular Hemoglobin 30.4 pg (27.0-31.0); Mean Corpuscular Volume 93.4 fl (78.0-98.0); Mean Platelet Volume 8.4 fL (7.4-10.4); Platelet Count 225 10x3/uL (130-400); RBC Distribution Width 13.8 % (11.5-14.5); Red Blood Cell (RBC) Count 4.55 mill/uL (4.20-5.40); White Blood Cell (WBC) Count 5.6 10x3/uL (4.8-10.8)
[2022-06-30] MEDS: Levothyroxine Sodium 25 MCG TAB PO SCH (05:29)
[2022-06-30] MEDS: Furosemide 20 MG/2 ML VIAL SLOW IVP SCH (05:29)
[2022-06-30 05:50] LABS: Anion Gap 14 mmol/L (10-20); BUN (Urea Nitrogen) 14 mg/dL (9.8-20.1); Calc. Creatinine Clearance 0 mL/min (70-130); Calcium 8.7 mg/dL (7.8-10.44); Carbon Dioxide 29 mmol/L (23-31); Chloride 90 mmol/L (98-107); Estimated GFR 89; Glucose 91 mg/dL (83-110); Potassium 4.4 mmol/L (3.5-5.1); Sodium 129 mmol/L (136-145)
[2022-06-30] MEDS: Ipratropium/Albuterol 3 ML NEB EZPAP SCH ×2 (08:56→15:39)
[2022-06-30] MEDS: Apixaban 2.5 MG TAB PO SCH (09:07)
[2022-06-30 11:40] VITALS: BP 106/55; TEMP 98
[2022-06-30] MEDS ORDERED: predniSONE 20 MG TAB PO SCH (12:15)
[2022-06-30] MEDS ORDERED: Furosemide 20 MG TAB PO SCH (14:00)
[2022-07-01] MEDS ORDERED: Spironolactone 25 MG TAB PO SCH (08:00)
== END 2022-06-30 15:40 | disposition home or self-care (01) | DRG 291 ==
LOC: ERS 16:42 → 2NO 19:58
PROVIDERS: ADMIT Internal Medicine; ATTEND Internal Medicine
DX: I50.33 Acute on chronic diastolic (congestive) heart failure (principal); J96.01 Acute respiratory failure with hypoxia; I31.39 Other pericardial effusion (noninflammatory); E87.1 Hypo-osmolality and hyponatremia; J20.9 Acute bronchitis, unspecified; I48.91 Unspecified atrial fibrillation; I27.20 Pulmonary hypertension, unspecified; E03.9 Hypothyroidism, unspecified; I08.1 Rheumatic disorders of both mitral and tricuspid valves; Z79.899 Other long term (current) drug therapy; Z79.890 Hormone replacement therapy; Z90.49 Acquired absence of other specified parts of digestive tract; Z85.118 Personal history of other malignant neoplasm of bronchus and lung; Z90.2 Acquired absence of lung [part of]; Z87.891 Personal history of nicotine dependence; Z98.890 Other specified postprocedural states; Z20.822 Contact with and (suspected) exposure to COVID-19
CPT/HCPCS: 36415; 71045; 71275; 80048; 80053; 81001; 83605; 83880; 84443; 84484; 85025; 86140; 87040; 87086; 93005; 93306; 94640; 94760; 96365; 96366; 96368; 96375; J0456; J0696; J1940; J7050; J7512; J7620; Q9967; U0003; U0005